=== PATIENT | male | born 1960 | race Two or more races ===

== ENCOUNTER 2017-10-04 23:46 | Emergency (ER) | payer SELFPAY ==
[2017-10-05] MEDS ORDERED: LIDOCAINE WITH 8.4% SOD BICARB 3 ML DISP.SYRIN. (00:39)
[2017-10-05] MEDS: HYDROcodone/APAP 5/325MG 1 TAB TABLET PO (00:45)
[2017-10-05] MEDS: LIDOCAINE WITH 8.4% SOD BICARB 3 ML DISP.SYRIN. INJ (00:56)
[2017-10-05] MEDS: AMOXICILLIN/K CLAV 875/125MG TABLET. PO (01:03)
[2017-10-05] MEDS: IBUPROFEN 800 MG TABLET. PO (01:05)
== END 2017-10-05 03:22 | disposition home or self-care (01) ==
LOC: ER 23:46
DX: S01.81XA Laceration without foreign body of other part of head, initial encounter (principal); S46.221A Laceration of muscle, fascia and tendon of other parts of biceps, right arm, initial encounter; F15.10 Other stimulant abuse, uncomplicated; K21.9 Gastro-esophageal reflux disease without esophagitis; E78.00 Pure hypercholesterolemia, unspecified; I10 Essential (primary) hypertension; Z90.49 Acquired absence of other specified parts of digestive tract; W54.0XXA Bitten by dog, initial encounter; Y93.89 Activity, other specified; Y92.89 Other specified places as the place of occurrence of the external cause; Y99.8 Other external cause status
CPT/HCPCS: 12002; 70450; 73060; 99284-25